=== PATIENT | male | born 2000 | race Caucasian/White ===

== ENCOUNTER 2023-06-02 19:54 | Emergency (ER) | payer BC ==
[~2023-06-02] VITALS: Ht 172.7 cm; Wt 63.5 kg
[2023-06-02 20:14] LABS: HEMATOCRIT 48.9 % (42.0-52.0); MEAN CELL VOLUME 86.7 fl (80.0-94.0); MEAN CORPUSCULAR HGB 30.3 pg (27.0-31.0); PLATELET COUNT AUTOMATED 216 10*3/uL (130-400); RED BLOOD COUNT 5.64 10*6/uL (4.50-5.90); RED CELL DISTRI WIDTH 12.8 % (0-14.5); WHITE BLOOD COUNT 25.7 10*3/uL (4.8-10.8)
[2023-06-02 20:19] LABS: MANUAL DIFF REFLEX YES
[2023-06-02 20:28] LABS: BUN 6 mg/dl (9-23); CHLORIDE 103 mmol/L (98-107); POTASSIUM 3.7 mmol/L (3.4-5.1)
[2023-06-02 20:51] LABS: PLATELET SUFFICIENCY NORMAL (NORMAL); TOTAL CELLS COUNTED 100 #CELLS
[2023-06-02] MEDS ORDERED: IOHEXOL 300 MG/ML 100 ML VIAL IV ONE (21:25)
[2023-06-02] MEDS ORDERED: IOHEXOL 300 MG/ML 100 ML VIAL ONE (21:42)
[2023-06-02] MEDS ORDERED: methylPREDNISolone sod succ 125 MG VIAL IV ONE (22:35)
== END 2023-06-02 22:59 | disposition home or self-care (01) ==
LOC: ED 19:54
PROVIDERS: Internal Medicine
DX: J02.8 Acute pharyngitis due to other specified organisms (principal); D72.829 Elevated white blood cell count, unspecified

== ENCOUNTER 2023-12-27 15:50 | Emergency (ER) | payer BC ==
[~2023-12-27] VITALS: Ht 172.7 cm; Wt 63.5 kg
[2023-12-27] MEDS ORDERED: FAMOTIDINE 20 MG TAB PO ONE (16:30)
[2023-12-27] MEDS ORDERED: methylPREDNISolone sod succ 125 MG VIAL IV ONE (16:30)
[2023-12-27] MEDS ORDERED: SODIUM CHLORIDE 0.9% 1,000 ML IV ONE (16:30)
[2023-12-27] MEDS ORDERED: diphenhydrAMINE hydrochloride 50 MG/ML VIAL IV ONE (16:30)
[2023-12-27] MEDS ORDERED: MEDROL DOSEPAK4 MG PO (17:19)
[2023-12-27] MEDS ORDERED: EPIPEN 2-P0.3 MG/0.3 IJ (17:19)
[2023-12-27] MEDS ORDERED: PEPCID40 MG PO (17:19)
== END 2023-12-27 17:25 | disposition home or self-care (01) ==
LOC: ED 15:50
DX: R09.89 Other specified symptoms and signs involving the circulatory and respiratory systems (principal); T78.1XXA Other adverse food reactions, not elsewhere classified, initial encounter; Z91.010 Allergy to peanuts; X58.XXXA Exposure to other specified factors, initial encounter